=== PATIENT | female | born 1950 | race Caucasian/White ===

== ENCOUNTER 2024-03-22 19:19 | Inpatient (IN) | payer MEDICARE, SELFPAY ==
[2024-03-22 12:39] VITALS: BP 165/85
--- NOTE | 2024-03-22 12:45 | ED.GENMED ---
ED Provider Triage
<Jordana Parra SOFTWARE QUALITY ENGINEER - Last Filed: 03/28/24 09:23>
-
Patient seen by provider in Triage?: Seen in Triage
Attestation: A medical screening examination has been initiated by a qualified medical provider. Based on the assessment performed at this time, it has been determined that an emergent medical condition may exist and the patient has been informed
that further medical evaluation and possible additional diagnostic testing may be needed.
HPI: 74-year-old female presents with her daughter who is concerned for increased confusion, nonsensical talking. Pt lives alone an hour away, daughter picked her up to bring her to her home for the holiday and noted much worse confusion.
Pt talking nonsensically in triage, removing her bracelet then apologizing about it. No focal deficits.
GENERAL: Alert , in no apparent distress
EYE: No visual abnormalities.
ENT: No visible abnormalities.
LUNGS: No acute respiratory distress
NEUROLOGICAL: Alert and oriented
SKIN: Skin intact. No visible changes.
MUSCULOSKELETAL: Moving extremities normally
PSYCH: Normal and appropriate interaction.
This is a medical evaluation conducted in person to initiate diagnostic evaluation and provide initial therapeutics. Please see further documentation by the treating clinician.
History of Present Illness
<Jordana Parra SOFTWARE QUALITY ENGINEER - Last Filed: 03/28/24 09:23>
General
Chief Complaint: Change in Mental Status
Time Seen by Provider: 03/22/24 12:44
<Tabitha Giron MD - Last Filed: 03/22/24 16:00>
General
Source: patient and family (Patient's daughter and daughter's friend who are at the bedside)
Exam Limitations: none
Nursing documentation reviewed up to this point in time: agreed with
History of Present Illness
History of Present Illness:
The patient is a 74-year-old female with a past medical history of cognitive decline over the last year according to her daughter. However, her daughter reports that she has never had a formal diagnosis of dementia or any specific formal workup.
Her daughter reports that the patient is visiting an hour away from [place]. Her daughter reports over the last 48 hours, the patient seems more confused than ever. Her daughter reports that the patient is saying things that do not make sense,
having difficulty doing simple things, is not showering, and is having visual hallucinations. Her daughter reports that it is not safe that the patient stay with her anymore. She is also concerned because the patient lives alone so it is unsafe to
go back to [place].
Past History
<Tabitha Giron MD - Last Filed: 03/22/24 16:00>
Past History
ED Past Medical History: HTN and NIDDM
ED Past Surgical History: Other
Social History
Tobacco: Smoker
Alcohol: Other
Drug: None
Personal:
Living: alone
Employment: Retired
Family History
Family History: Other
Review of Systems
<Tabitha Giron MD - Last Filed: 03/22/24 16:00>
Review of Systems
Allergies reviewed?: Yes
Other source history: family
All Other Systems: Not applicable (Patient is a vague historian)
Phy Exam
<Tabitha Giron MD - Last Filed: 03/22/24 16:00>
Physical Exam
Physical Exam:
Physical Exam
General: no apparent distress, not acutely ill
Neck: supple. no meningeal signs. normal psoterior pharynx
Heart: s1/s2 regular rate and rhythm, no murmur. equal radial pulses.
Lungs: no acute respiratory distress. clear bilaterally
Abdomen: normal bowel sounds. not tender. no CVAT
Neuro: alert and oriented to self and place. no focal neurological deficits. Has difficulty following simple commands. Says things that do not make sense
Skin: no rash
Psychiatric: Calm and cooperative
Extremities: no edema. no calf tenderness. negative homans. good distal pulses
Course
<Jordana Parra NP - Last Filed: 03/28/24 09:23>
Orders/Labs/Results
Orders:
Orders
03/22/24 12:52
Complete Blood Count/With Diff Urgent
Comprehensive Metabolic Panel Urgent
Glycohemoglobin (HgbA1c) Urgent
03/22/24 14:53
Case Management Consult ONCE
Case Management Consult: Discharge Planning
Requested By:: PHYSICIAN
Comment: Patient has a history of an underlying cognitive disease which has been undiagnosed. Patient
is becoming more confused and forgetful. Patient lives alone at home so is unsafe
0.9% Sodium Chloride 1000 ml [Nss] 1,000 ml IV BOLUS
03/22/24 14:54
CT Head W/o Iv Contrast Urgent
Comment:
Reason For Exam: worsening confusion
03/22/24 Dinner
Regular
At Your Request: Limited, Flask Pusher Required
03/22/24 17:27
Urinalysis Reflex To Culture Urgent
Date Specimen was Collected: 03/22/24
Time Specimen was Collected: 12:49
Urine Microscopic Reflex Cult Urgent
03/22/24 18:48
Admit/Transfer Patient As Directed
Co-Sign Provider:
Level of Care: Inpatient admission
Assign to:: Medical/Surgical
Physician / Group: [facility]sky/Hospitalist
Diagnosis: Encephalopathy
Reason for Hospitalization: Acute Encephalopathy
Expected length of stay greater than two midnights?: Yes
ELOS- Estimated Length of Stay in days: 4
I certify the patient meets the requirements for IP care: Yes
PRN Pain Medication Management As Directed
May give lesser potent ordered pain med per pt: Yes
preference::
Protocol:: Medication orders for pain may be administered in a
manner that supports deferring to patient preference
when the pt is:
- Requesting an ordered lesser potent pain medication.
Least to most potent pain medications are defined
as: acetaminophen < NSAID < tramadol < opioids
(morphine, oxycodone, hydromorphone).
- Requesting a lesser dose of the same medication IF
ORDERED.
- Requesting a less intrusive route of administration
if both routes are prescribed by the provider (PO <
IV).
03/22/24 18:50
Code Status As Directed
Resuscitation Status: Do not resuscitate
Reached after discussion with pt or family/Healthcare POA: Yes
Decision communicated with: Latasha paez
03/22/24 18:51
DNR Bracelet Application ONCE
03/22/24 21:09
Bisacodyl [Dulcolax] 10 mg RECTAL [id number] PRN
Carvedilol [Coreg] 25 mg PO BID
Clonazepam [Klonopin] 0.5 mg PO DAILYPRN PRN
Docusate W/Senna [Senokot-S] 1 tablet PO BIDPRN PRN
Heparin 5,000 units SC Q12
Polyethylene Glycol Powder [Miralax] 17 grams PO DAILYPRN PRN
03/22/24 21:09
Consult Neurology [NEUROLOGY CONSULT] Routine
Consulting Provider: Kolby Kelley
Was physician already notified: Yes
Activity As Directed
Activity Level: Out of Bed-Early Mobility
With Assistance
Vital Signs As Directed
Frequency: Per unit guidelines
Weight As Directed
Frequency: Daily
DX Deep Vein Thrombosis Video Routine
03/22/24 22:00
Ezetimibe [Zetia] 10 mg PO HS
Rosuvastatin Calcium [Crestor] 20 mg PO HS
03/23/24 05:20
Basic Metabolic Panel IN AM
Thyroid profile [TSH Reflex To Free T4] IN AM
03/23/24 06:00
Levothyroxine [Synthroid] 88 mcg PO DAILY @ 0600
03/23/24 18:00
Pantoprazole [Protonix] 40 mg PO QPM
Abnormal Lab Results
03/22/24 03/22/24
12:52 17:27
Hgb 9.4 L g/dL
(12.0-16.0)
Hct 31.6 L %
(37.0-47.0)
MCV 61.4 L fL
(81.0-99.0)
MCH 18.3 L pg
(27.0-31.0)
MCHC 29.7 L g/dL
(33.0-37.0)
RDW 17.6 H %
(11.5-14.5)
BUN 46 H mg/dl
(7-17)
Creatinine 1.5 H mg/dL
(0.6-1.0)
Hemoglobin A1c 6.2 H %
(4.0-5.6)
Urine Ketones Trace A
(Negative)
Urine Bacteria (Reflex) Few A
(Negative)
Urine Albumin (Reflex) 1+ A
(Neg - Trace)
03/22/24 12:52
03/22/24 12:52
Vital Signs
Initial and Last Documented VS:
Initial Vital Signs
Temp Pulse Resp BP Pulse Ox
98.5 F 83 16 165/85 98
03/22/24 12:39 03/22/24 12:39 03/22/24 12:39 03/22/24 12:39 03/22/24 12:39
Last Documented Vital Signs
Temp Pulse Resp BP Pulse Ox
97.7 F 66 17 166/75 99
03/28/24 07:30 03/28/24 08:03 03/28/24 07:30 03/28/24 08:03 03/28/24 07:30
<Tabitha Giron MD - Last Filed: 03/22/24 16:00>
Orders/Labs/Results
Orders:
Orders
03/22/24 12:52
Complete Blood Count/With Diff Urgent
Comprehensive Metabolic Panel Urgent
Glycohemoglobin (HgbA1c) Urgent
03/22/24 14:53
Case Management Consult ONCE
Case Management Consult: Discharge Planning
Requested By:: PHYSICIAN
Comment: Patient has a history of an underlying cognitive disease which has been undiagnosed. Patient
is becoming more confused and forgetful. Patient lives alone at home so is unsafe
0.9% Sodium Chloride 1000 ml [Nss] 1,000 ml IV BOLUS
03/22/24 14:54
CT Head W/o Iv Contrast Urgent
Comment:
Reason For Exam: worsening confusion
03/22/24 Dinner
Regular
At Your Request: Limited, Flask Pusher Required
03/22/24 17:27
Urinalysis Reflex To Culture Urgent
Date Specimen was Collected: 03/22/24
Time Specimen was Collected: 12:49
Urine Microscopic Reflex Cult Urgent
03/22/24 18:48
Admit/Transfer Patient As Directed
Co-Sign Provider:
Level of Care: Inpatient admission
Assign to:: Medical/Surgical
Physician / Group: Mirsky/Hospitalist
Diagnosis: Encephalopathy
Reason for Hospitalization: Acute Encephalopathy
Expected length of stay greater than two midnights?: Yes
ELOS- Estimated Length of Stay in days: 4
I certify the patient meets the requirements for IP care: Yes
PRN Pain Medication Management As Directed
May give lesser potent ordered pain med per pt: Yes
preference::
Protocol:: Medication orders for pain may be administered in a
manner that supports deferring to patient preference
when the pt is:
- Requesting an ordered lesser potent pain medication.
Least to most potent pain medications are defined
as: acetaminophen < NSAID < tramadol < opioids
(morphine, oxycodone, hydromorphone).
- Requesting a lesser dose of the same medication IF
ORDERED.
- Requesting a less intrusive route of administration
if both routes are prescribed by the provider (PO <
IV).
03/22/24 18:50
Code Status As Directed
Resuscitation Status: Do not resuscitate
Reached after discussion with pt or family/Healthcare POA: Yes
Decision communicated with: Latasha paez
03/22/24 18:51
DNR Bracelet Application ONCE
03/22/24 21:09
Bisacodyl [Dulcolax] 10 mg RECTAL [id number] PRN
Carvedilol [Coreg] 25 mg PO BID
Clonazepam [Klonopin] 0.5 mg PO DAILYPRN PRN
Docusate W/Senna [Senokot-S] 1 tablet PO BIDPRN PRN
Heparin 5,000 units SC Q12
Polyethylene Glycol Powder [Miralax] 17 grams PO DAILYPRN PRN
03/22/24 21:09
Consult Neurology [NEUROLOGY CONSULT] Routine
Consulting Provider: Kolby Kelley
Was physician already notified: Yes
Activity As Directed
Activity Level: Out of Bed-Early Mobility
With Assistance
Vital Signs As Directed
Frequency: Per unit guidelines
Weight As Directed
Frequency: Daily
DX Deep Vein Thrombosis Video Routine
03/22/24 22:00
Ezetimibe [Zetia] 10 mg PO HS
Rosuvastatin Calcium [Crestor] 20 mg PO HS
03/23/24 05:20
Basic Metabolic Panel IN AM
Thyroid profile [TSH Reflex To Free T4] IN AM
03/23/24 06:00
Levothyroxine [Synthroid] 88 mcg PO DAILY @ 0600
03/23/24 18:00
Pantoprazole [Protonix] 40 mg PO QPM
Abnormal Lab Results
03/22/24 03/22/24
12:52 17:27
Hgb 9.4 L g/dL
(12.0-16.0)
Hct 31.6 L %
(37.0-47.0)
MCV 61.4 L fL
(81.0-99.0)
MCH 18.3 L pg
(27.0-31.0)
MCHC 29.7 L g/dL
(33.0-37.0)
RDW 17.6 H %
(11.5-14.5)
BUN 46 H mg/dl
(7-17)
Creatinine 1.5 H mg/dL
(0.6-1.0)
Hemoglobin A1c 6.2 H %
(4.0-5.6)
Urine Ketones Trace A
(Negative)
Urine Bacteria (Reflex) Few A
(Negative)
Urine Albumin (Reflex) 1+ A
(Neg - Trace)
03/22/24 12:52
03/22/24 12:52
Vital Signs
Initial and Last Documented VS:
Initial Vital Signs
Temp Pulse Resp BP Pulse Ox
98.5 F 83 16 165/85 98
03/22/24 12:39 03/22/24 12:39 03/22/24 12:39 03/22/24 12:39 03/22/24 12:39
Last Documented Vital Signs
Temp Pulse Resp BP Pulse Ox
97.7 F 66 17 166/75 99
03/28/24 07:30 03/28/24 08:03 03/28/24 07:30 03/28/24 08:03 03/28/24 07:30
<Tabitha Giron MD - Last Filed: 03/22/24 16:00>
MDM/Problems Addressed
Differential Diagnosis Includes:
Acute flare of chronic dementia, UTI, intracranial hemorrhage
MDM/Problems Addressed:
Patient presents with acute on chronic confusion
Chronic conditions affecting care:
History of cognitive disorder
Acute Exacerbation and/or Progression of Chronic Illness:
Patient may have acute exacerbation of a cognitive disorder
<Tabitha Giron MD - Last Filed: 03/22/24 16:00>
*Pulse Oximetry
Patient hypoxic: no
*EKG
Interpreted by ED Provider?: NA
*Floor Layer Interpretation
Rate: normal
Interpretation: normal
Rhythm: sinus
*Critical Care Note
Total Time (30-74mins, 75-104mins- exclusive of procedures): Not Applicable
Data Reviewed
Source: patient and family
<Tabitha Giron MD - Last Filed: 03/22/24 16:00>
Patient Management
Social determinants of health affecting care: Living situation
Discussion with other providers: Hospitalist and Other (Case managementSharron came to assess patient.)
ED Attending Note
<Jordana Parra NP - Last Filed: 03/28/24 09:23>
-
Portions of this chart may have been created with voice recognition software.� Occasional wrong word or��sound alike� substitutions may have occurred due to the inherent limitations of voice recognition software.
Discharge Plan
Departure
Patient Disposition: Admit
Date of Disposition: 03/22/24
Time of Disposition: 16:00
Presentation/result/management discussed w/ accepting MD/DO: Hospitalist
Patient with high blood pressure during this ER visit?: Yes
Condition: Good
Covid-19: Not Applicable
Discharge Problem:
Acute on chronic alteration in mental status
Interventions
Interventions:
*Risk Screen - Suicide Last Done: 03/22/24 15:35
*General Assessment Last Done: 03/22/24 15:35
*Neglect/Abuse Screening Last Done: 03/22/24 15:35
ED- Fall Risk Assessment Last Done: 03/22/24 21:21
*Nursing Disposition Last Done: 03/22/24 21:21
ED- Neurological Assessment Last Done: 03/22/24 15:35
ED Swallowing Screen Last Done: 03/22/24 15:36
Discharge Date and Time
Discharge Date/Time: 03/22/24 21:21
[2024-03-22 13:10] LABS: Glucose - Point of Care 81 mg/dl (70-99)
--- NOTE | 2024-03-22 13:15 | EDRN ---
pt. family member came up to front window cashier and reported pt felt a little shaking like her blood sugar was low. unable to check blood sugar due to supplies being at home and asking for juice. RN brought pt back to check blood sugar. blood sugar 81. OJ
given even though blood sugar within normal ranges because pt family asked. Brought pt back out family members.
[2024-03-22 13:21] LABS: % Basophils 0.8 % (0-2); % Eosinophils 1.7 % (0-6); % Immature Granulocytes 0.3 % (0-0.5); % Lymphocytes 33.2 % (20.5-51.1); % Monocytes 8.3 % (1.7-9.3); % Neutrophils 55.7 % (42.2-75.2); Absolute Basophils 0.1 10^3/uL (0-0.2); Absolute Eosinophils 0.1 10^3/uL (0-0.7); Absolute Lymphocytes 2.2 10^3/uL (1.2-3.4); Absolute Monocytes 0.6 10^3/uL (0.1-0.6); Absolute Neutrophils 3.7 10^3/uL (1.4-6.5); Hematocrit 31.6 % (37.0-47.0); Hemoglobin 9.4 g/dL (12.0-16.0); Mean Corp Hgb Conc. 29.7 g/dL (33.0-37.0); Mean Corpuscular Hgb 18.3 pg (27.0-31.0); Mean Corpuscular Volume 61.4 fL (81.0-99.0); Nucleated Red Blood Cells % 0 %; Platelet Count 202 10^3/uL (130-400); Red Blood Cell Count 5.15 10^6/uL (4.20-5.40); Red Cell Dist. Width 17.6 % (11.5-14.5); White Blood Cell Count 6.7 10^3/uL (4.8-10.8)
[2024-03-22 13:24] LABS: ALT (SGPT) 15 U/L (0-35); AST (SGOT) 34 U/L (14-36); Alkaline Phosphatase 65 U/L (38-126); Blood Urea Nitrogen 46 mg/dl (7-17); Calcium 9.2 mg/dl (8.4-10.2); Carbon Dioxide 25 mmol/L (22-30); Chloride 104 mmol/L (98-107); Glucose 86 mg/dl (70-99); Potassium 4.8 mmol/L (3.5-5.1); Sodium 142 mmol/L (135-145); Total Bilirubin 0.3 mg/dl (0.2-1.3)
[2024-03-22] MEDS: NSS 1000 IV (15:10)
--- NOTE | 2024-03-22 16:04 | CM ---
Addendum entered by Sharron Sevilla RN 03/22/24 16:55:
CM provided patient's daughter with Advanced Directive Information.
Original Note:
CM was consulted regarding discharge planning options. CM met with patient and family in room. Family reports that patient recently moved back to [place] about two years ago. Family stated that they had a difficult time seeing patient regularly
due to distance. Patient was picked up by family to spend the holiday's with family. Family noted that patient seems acutely confused and they were unable to manage her behavior including wandering and confusion.
Family understands that patient living alone may not continue to be an options. CM encouraged family to discuss alternative living arrangements. CM provided family with written resources on [employer], private pay care givers, and [facility] on
Aging and [facility] on aging. Family believes they will be transitioning patient to the [facility]. CM advised that patient may not need placement, and encouraged family to make safety arrangements for patient on discharge.
CM updated ED physician and bedside RN>
[2024-03-22 16:51] VITALS: BP 171/60
[2024-03-22 17:42] LABS: Urine Albumin 1+ (Neg - Trace); Urine Bilirubin Negative (Negative); Urine Character Clear (Clear); Urine Color Yellow; Urine Glucose Negative (Negative); Urine Ketone Trace (Negative); Urine Leukocyte Negative (Negative); Urine Nitrite Negative (Negative); Urine Occult Blood Negative (Negative); Urine Specific Gravity 1.015 (<1.030); Urine Urobilinogen Negative (Neg - 1+)
[2024-03-22 17:49] LABS: Urine Squamous Cell 0-2 /LPF (Few)
[2024-03-22 17:50] LABS: Urine Bacteria Few (Negative); Urine Red Blood Cell 0-2 /HPF (0-2); Urine White Cell 0-2 /HPF (0-5)
--- NOTE | 2024-03-22 18:55 | W.PN.HOSP.TC ---
Today's Communication/Plan
-
check labs
neuro consult
Assessment / Plan
Assessment / Plan
Progressive decrease cognitive fxn past year, became suddenly more severe past 48 hrs
unclear if pt has been taking her medications. Concern for NPH. CT scan: There is no evidence of intracranial mass lesion or mass effect with no midline shift.
There is no evidence for acute intracranial hemorrhage.
Mild to moderate diffuse atrophy. Moderate ventricular dilation appears slightly greater in the degree of atrophy. The callosal angle appears normal, the finding which is considered evidence against normal pressure hydrocephalus but does not exclude
normal pressure hydrocephalus. Please correlate clinically.
Hypothyroidism
will check levels
Hx of essential HTN
probably not taking medication
P:neuro consult
will hold most of medications and resume cautiously
Pt is a DNR
See dictated note
Anticipated Discharge: > 48 hours
Subjective/Interval History
-
Date of Service: March 22, 2024
Gradually decreasing mental status over past 1 year, becoming markedly more severe past 48 hrs
Objective Data
-
Labs:
Laboratory Results
03/22/24
12:52
WBC 6.7
Hgb 9.4 L
Hct 31.6 L
Plt Count 202
Sodium 142
Potassium 4.8
Chloride 104
Carbon Dioxide 25
BUN 46 H
Creatinine 1.5 H
Glucose 86
Calcium 9.2
Total Bilirubin 0.3
AST 34
ALT 15
Alkaline Phosphatase 65
Vital Signs:
Vital Signs
Temp Pulse Resp BP Pulse Ox
98.5 F 77 18 171/60 87
03/22/24 12:39 03/22/24 16:51 03/22/24 16:51 03/22/24 16:51 03/22/24 16:51
Review of Systems
-
History Source: Family (dgt, Latasha)
Constitutional: Denies Fever
EENT: Reports No Symptoms Reported
Respiratory: Reports No Symptoms
Cardiac: Reports No Symptoms
Abdomen/GI: Reports No Symptoms
Physical Exam
-
General: Well Developed, Well Nourished and No Apparent Distress
HEENT: Normocephalic, Atraumatic and Moist Mucous Membranes
Respiratory: Clear to Auscultation; Negative Wheezes, Rales or Rhonchi
Cardiac: Regular Rhythm and S1/S2
GI: Soft, Nontender and Nondistended
Musculoskeletal: No Clubbing, No Cyanosis and No Edema
Psych: Calm
[2024-03-22 21:15] VITALS: BP 155/71; BMI 23.3
[2024-03-22] MEDS: ZETIA 10 MG PO (22:27)
[2024-03-22] MEDS: HEPARIN SC ×2 (22:27→22:36)
[2024-03-22] MEDS: CRESTOR 20 MG PO (22:27)
[2024-03-22] MEDS: COREG 25 MG PO (22:27)
[2024-03-22] MEDS: KLONOPIN 0.5 MG PO (22:28)
[2024-03-23] MEDS: SYNTHROID 88 MCG PO (05:11)
[2024-03-23 06:00] VITALS: BMI 23.1
[2024-03-23 06:20] LABS: Blood Urea Nitrogen 39 mg/dl (7-17); Carbon Dioxide 23 mmol/L (22-30); Chloride 106 mmol/L (98-107); Estimated Creatinine Clearance 30 ml/min; Glucose 84 mg/dl (70-99); Potassium 4.5 mmol/L (3.5-5.1); Sodium 143 mmol/L (135-145); eGFR 43.69
[2024-03-23 06:49] LABS: TSH Reflex To Free T4 0.16 uIU/ml (0.47-4.68)
--- NOTE | 2024-03-23 07:32 | CON.NEURO ---
Neuro Assessment/Plan
Assessment
Abrupt onset cognitive decline on chronic cognitive decline
Most likely multifactorial including mild metabolic issues which involve hypothyroidism, inadequate iron replacement, small vessel ischemic disease
Plan
Check blood work for potential metabolic causes including vitamin B12 deficiency and replace B12 if found to be deficient
Restart iron replacement
No evidence at this time and the patient is clearly experiencing normal pressure hydrocephalus other than the patient's cognitive decline and mildly enlarged ventricles
Consideration for sleep testing as outpatient due to relatively age-ng-haukadh hypothyroidism
Based on the significant nature of the patient's cognitive issues, it is not clear that she would benefit from medications for stabilization other than memantine
We will follow as needed.
Consultation
Order
Date of Consultation: 03/23/24
Requesting Provider: Hospitalist
Reason for Consult: Dementia
Subjective/Objective
Subjective Data
Date of Service: March 23, 2024
'I've come in for a procedure.'
Right-handed
By medical records, the patient has a history of cognitive decline over greater than 1 year was described by family members at the time of admission as experiencing a sudden worsening of cognition. Because of CT of head changes, this consult was
placed. There are no known modifying factors. It is not clear as to what the patient's usual level of cognitive function may be reflected as as the patient herself is unable to provide her own medical history.
Objective Data
Vital Signs
Temp Pulse Resp BP Pulse Ox
37.2 C 77 16 155/71 99
03/22/24 21:15 03/22/24 22:27 03/22/24 21:15 03/22/24 22:27 03/22/24 21:15
Lab Results
03/22/24 12:52
03/23/24 05:20
Sodium 143 mmol/L (135-145) 03/23/24 05:20
Potassium 4.5 mmol/L (3.5-5.1) 03/23/24 05:20
BUN 39 mg/dl (7-17) H 03/23/24 05:20
Glucose 84 mg/dl (70-99) 03/23/24 05:20
Calcium 9.0 mg/dl (8.4-10.2) 03/23/24 05:20
Patient Allergies
Penicillins Allergy (Verified 03/22/24 12:49)
Unknown
Review of Systems
-
Unable to obtain full review of systems at this time due to: Dementia
History Source: Patient
All other systems: Reviewed and negative
Physical Exam
-
General: No Apparent Distress and Appears Stated Age
Eyes: OU Absent Papilledema, Round OU, [place] Conjunctivae and No Ptosis
HEENT: Anicteric and Moist Mucous Membranes
Neck: Full Range of Motion
Respiratory: No Dyspnea
Cardiac: No JVD
GI: Non-distended
Skin: Unremarkable
Extremities: No Clubbing, No Cyanosis and No Edema
Psych: Intact Judgement/Insight
Extended Neurological Exam
Mood & Affect: Mood Unremarkable and Affect Unremarkable
Attention Span & Concentration: Awake, Alert, Interactive and No Difficulty with 2 Step Request
Memory: Reduced (For location, month, year) and Unable to Recall Personal History
Tremor: Hand Tremor Absent and Head Tremor Absent
Involuntary Movement: None
Speech: Quality Unremarkable and Quantity Unremarkable
Cranial Nerve II: Left Eye: Pupillary Reactivity Unremarkable, Pupillary Size Unremarkable and Visual Sears Intact
Cranial Nerve II: Right Eye: Pupillary Reactivity Unremarkable, Pupillary Size Unremarkable and Visual Sears Intact
Cranial Nerves III, IV, : Extraocular Movement: Extraocular Movement Full in all Directions
Cranial Nerve VII: Facial Symmetry: Normal Facial Symmetry
Cranial Nerve VIII: Hearing: Unremarkable Hearing to Normal Conversational Volume
Cranial Nerves IX, X: Palate Movement: Palate Elevation Symmetric
Cranial Nerve XI: Shoulder Shrug: Unremarkable
Cranial Nerve XII: Tongue Protusion: Midline
Muscle Strength, Overall: Full Throughout
Muscle Bulk & Tone: Bulk Unremarkable and Tone Unremarkable
Pronator Drift: No Drift in Upper Extremities
Deep Tendon Reflexes: Unremarkable Throughout
Touch Sensation: Unremarkable
Coordination: [id number] Testing Unremarkable
Babinski Sign: Absent Bilaterally
Data Reviewed
-
CT Head: Report Reviewed and Image Reviewed
Labs: Ordered and Report Reviewed
Reviewed with: Physician and Patient
Old Records: Summarized
Medications
-
Active Medications
Generic Name Dose Route Start Last Admin
Trade Name Freq PRN Reason Stop Dose Admin
Bisacodyl 10 mg 03/22/24 21:09
Bisacodyl 10 Mg Rectal Suppository RECTAL 04/19/24 21:08
[id number] PRN
constipation
Carvedilol 25 mg 03/22/24 21:09 03/22/24 22:27
Carvedilol 25 Mg Tablet PO 04/19/24 21:08 25 mg
BID STEPHENIE Administration
Clonazepam 0.5 mg 03/22/24 21:09 03/22/24 22:28
Clonazepam 0.5 Mg Tablet PO 04/19/24 21:08 0.5 mg
DAILYPRN PRN Administration
anxiety
Ezetimibe 10 mg 03/22/24 22:00 03/22/24 22:27
Ezetimibe (Zetia) 10 Mg Tablet PO 04/19/24 21:59 10 mg
HS STEPHENIE Administration
Heparin Sodium 5,000 units 03/22/24 21:09 03/22/24 22:36
Heparin 5,000 Units/Ml 1 Ml Vial SC 04/19/24 21:08 Not Given
Q12 STEPHENIE
Levothyroxine Sodium 88 mcg 03/23/24 06:00 03/23/24 05:11
Levothyroxine 88 Mcg Tablet PO 04/20/24 05:59 88 mcg
DAILY @ 0600 STEPHENIE Administration
Pantoprazole Sodium 40 mg 03/23/24 18:00
Pantoprazole 40 Mg Delayed Release Tablet PO 04/20/24 17:59
QPM STEPHENIE
Polyethylene Glycol 17 grams 03/22/24 21:09
Polyethylene Glycol Powder 17 Grams Packet PO 04/19/24 21:08
DAILYPRN PRN
constipation
Rosuvastatin Calcium 20 mg 03/22/24 22:00 03/22/24 22:27
Rosuvastatin (Crestor) 20 Mg Tablet PO 04/19/24 21:59 20 mg
HS STEPHENIE Administration
Senna/Docusate Sodium 1 tablet 03/22/24 21:09
Docusate W/Senna (Jess-Colace) Tablet PO 04/19/24 21:08
BIDPRN PRN
constipation
Sodium Chloride 0 flush 03/22/24 22:00
Sodium Chloride 0.9% (Flush) Syringe IV 04/19/24 21:59
PER PROTOCOL STEPHENIE
Home Medications
�Medication �Instructions �Recorded
carvedilol 25 mg tablet 25 mg PO BID Heart Failure 03/22/24
clonazepam 0.5 mg tablet 0.5 mg PO DAILYPRN PRN anxiety 03/22/24
dexlansoprazole 60 mg 60 mg PO DAILY Gastrointestinal 03/22/24
capsule,biphase delayed release Issue
esomeprazole magnesium 20 mg 20 mg PO QPM Gastrointestinal Issue 03/22/24
capsule,delayed release (Nexium
24HR)
ezetimibe 10 mg tablet 10 mg PO HS High Cholesterol 03/22/24
famotidine 20 mg tablet (Pepcid) 20 mg PO DAILY Gastrointestinal 03/22/24
Issue
hydrochlorothiazide 12.5 mg capsule 12.5 mg PO NOON Fluid 03/22/24
Retention/Swelling
levothyroxine 88 mcg tablet 88 mcg PO DAILY Thyroid 03/22/24
metformin 500 mg tablet 500 mg PO QPM Diabetes 03/22/24
morphine 15 mg tablet,extended 15 mg PO Q12H Pain 03/22/24
release
pregabalin 75 mg capsule 75 mg PO TID Neurological Condition 03/22/24
rosuvastatin 20 mg tablet 20 mg PO HS High Cholesterol 03/22/24
telmisartan 80 mg tablet 80 mg PO NOON Blood Pressure 03/22/24
Past History
Past History
ED Past Medical History: GERD, HTN, NIDDM, Hypothyroidism and Other (Cognitive decline, emphysema, low iron, Meyer's esophagus, chronic back pain)
ED Past Surgical History: Orthopedic (Back surgery, right ankle repair)
Social History
Tobacco: Smoker
Alcohol: Other
Drug: None
Personal:
Living: alone
Employment: Retired
Family History
Family History: Other (Reviewed and noncontributory)
[2024-03-23 07:52] VITALS: BP 127/54
[2024-03-23] MEDS: COREG 25 MG PO ×2 (08:56→20:07)
[2024-03-23 08:57] LABS: Erythrocyte Sed Rate 52 mm/hour (0-20)
[2024-03-23] MEDS: HEPARIN 5000 UNITS SC ×2 (08:58→20:07)
[2024-03-23 09:15] LABS: Ferritin 28.9 ng/ml (11.1-264.0)
[2024-03-23 09:46] LABS: Folate 12.8 ng/ml (2.76-20); Vitamin B12 366 pg/ml (239-931)
[2024-03-23] MEDS: FERRLECIT 110 MG IV (15:18)
[2024-03-23] MEDS: VITAMIN B-12 1000 MCG PO (15:22)
[2024-03-23 15:46] VITALS: BP 152/77
--- NOTE | 2024-03-23 16:11 | W.PN.HOSP.TC ---
Today's Communication/Plan
-
follow BP off anti HTN Rx
check a1c
Assessment / Plan
Assessment / Plan
Progressive decrease cognitive fxn past year, became suddenly more severe past 48 hrs
unclear if pt has been taking her medications. Concern for NPH. CT scan: There is no evidence of intracranial mass lesion or mass effect with no midline shift.
There is no evidence for acute intracranial hemorrhage.
Mild to moderate diffuse atrophy. Moderate ventricular dilation appears slightly greater in the degree of atrophy. The callosal angle appears normal, the finding which is considered evidence against normal pressure hydrocephalus but does not exclude
normal pressure hydrocephalus. Please correlate clinically.
Hypothyroidism
TSH 0.16/free T4 2.30
unclear if pt was taking correct dose prior to admission. Will continue current dose and recheck level in future
Hx of essential HTN
probably not taking medication. BP 127/54-152/77. Will hold off resuming BP medication and follow BP
Thalassemia Minor
will follow
NIDDM by hx
will stop Metformin and check a1c
Prerenal azotemia
BUN/Creat 46/1.5-->39/1.3
improvement in dehydration (probably with stopping HCTZ) may be related to her slightly improved mentation
P:neuro consult appreciated
will hold most of medications and resume cautiously
Pt is a DNR
reviewed with Latasha paez 03/23
Reviewed with RAISA
Anticipated Discharge: 24 - 48 hours
Subjective/Interval History
-
Date of Service: March 23, 2024
Slightly more attentive today
Objective Data
-
Labs:
Laboratory Results
03/23/24
05:20
Sodium 143
Potassium 4.5
Chloride 106
Carbon Dioxide 23
BUN 39 H
Creatinine 1.3 H
Glucose 84
Calcium 9.0
Vital Signs:
Vital Signs
Temp Pulse Resp BP Pulse Ox
97.8 F 73 17 152/77 95
03/23/24 15:46 03/23/24 15:46 03/23/24 15:46 03/23/24 15:46 03/23/24 15:46
I&O
03/22/24 03/23/24 03/24/24
06:59 06:59 06:59
Intake Total
Balance
Review of Systems
-
History Source: Family (jeannine, Latasha)
Constitutional: Denies Fever
EENT: Reports No Symptoms Reported
Respiratory: Reports No Symptoms
Cardiac: Reports No Symptoms
Abdomen/GI: Reports No Symptoms
Physical Exam
-
General: Well Developed, Well Nourished and No Apparent Distress
HEENT: Normocephalic, Atraumatic and Moist Mucous Membranes
Respiratory: Clear to Auscultation; Negative Wheezes, Rales or Rhonchi
Cardiac: Regular Rhythm and S1/S2
GI: Soft, Nontender and Nondistended
Musculoskeletal: No Clubbing, No Cyanosis and No Edema
Psych: Calm
[2024-03-23 16:17] VITALS: BP 171/89; PULSE 78; O2SAT 98
--- NOTE | 2024-03-23 16:55 | CM ---
PT done indicated VN . Will need OT.
Pt lives alone .
PLAN Ongoing
[2024-03-23] MEDS: PROTONIX 40 MG PO (17:18)
[2024-03-23] MEDS: KLONOPIN 0.5 MG PO (20:06)
[2024-03-23 20:20] VITALS: BP 165/77
[2024-03-23] MEDS: CRESTOR PO (21:19)
[2024-03-23] MEDS: FEOSOL PO (21:20)
[2024-03-23] MEDS: ZETIA PO (21:20)
[2024-03-23] MEDS: ZETIA 10 MG PO (21:31)
[2024-03-23] MEDS: CRESTOR 20 MG PO (21:31)
[2024-03-23] MEDS: FEOSOL 325 MG PO (21:31)
[2024-03-23 23:20] VITALS: BP 141/73
[2024-03-24 05:44] VITALS: BMI 22.7
[2024-03-24] MEDS: SYNTHROID 88 MCG PO (06:18)
--- NOTE | 2024-03-24 06:46 | DOWNTIME ---
There was a [email or web address] Downtime on 03/24/2024 from 0100 to 03/24/2024 at 0350. Downtime documentation of patient's care, including medication administrations, has been reconciled in the electronic record per guidelines. Refer to the
patient's paper chart under the miscellaneous tab to see printed paper medication records and downtime forms.
[2024-03-24 07:00] VITALS: BP 180/76
[2024-03-24] MEDS: COREG 25 MG PO ×2 (08:55→20:56)
[2024-03-24] MEDS: HEPARIN 5000 UNITS SC ×2 (08:55→20:54)
[2024-03-24] MEDS: VITAMIN B-12 1000 MCG PO (09:01)
[2024-03-24 10:02] LABS: Glycohemoglobin (HgbA1c) 6.2 % (4.0-5.6)
--- NOTE | 2024-03-24 12:26 | W.PN.HOSP.TC ---
Today's Communication/Plan
-
check for Norovirus
resume BP Rx, Diovan
resume Metformin
Assessment / Plan
Assessment / Plan
Progressive decrease cognitive fxn past year, became suddenly more severe past 48 hrs
unclear if pt has been taking her medications. Concern for NPH. CT scan: There is no evidence of intracranial mass lesion or mass effect with no midline shift.
There is no evidence for acute intracranial hemorrhage.
Mild to moderate diffuse atrophy. Moderate ventricular dilation appears slightly greater in the degree of atrophy. The callosal angle appears normal, the finding which is considered evidence against normal pressure hydrocephalus but does not exclude
normal pressure hydrocephalus. Please correlate clinically.
Hypothyroidism
TSH 0.16/free T4 2.30
unclear if pt was taking correct dose prior to admission. Will continue current dose and recheck level in future
Hx of essential HTN
probably not taking medication. BP 127/54-152/77. Will start Diovan 80 mg
diarrhea
possibly norovirus, will check
Thalassemia Minor
will follow
NIDDM by hx
a1c 6.2%. Will resume Metformin
Prerenal azotemia
BUN/Creat 46/1.5-->39/1.3
improvement in dehydration (probably with stopping HCTZ) may be related to her slightly improved mentation
P:neuro consult appreciated
will hold most of medications and resume cautiously
Pt is a DNR
reviewed with Latasha paez 03/24, requested she contact CM regarding dc planning
Reviewed with CM
Anticipated Discharge: 24 - 48 hours
Subjective/Interval History
-
Date of Service: March 24, 2024
Having diarrhea today
Objective Data
-
Vital Signs:
Vital Signs
Temp Pulse Resp BP Pulse Ox
97.8 F 69 17 180/76 98
03/24/24 07:00 03/24/24 08:55 03/24/24 07:00 03/24/24 08:55 03/24/24 08:20
I&O
03/23/24 03/24/24 03/25/24
06:59 06:59 06:59
Intake Total 60 / 60 180 / 180
Balance 60 / 60 180 / 180
Review of Systems
-
History Source: Family (dgt, Latasha)
Constitutional: Denies Fever
EENT: Reports No Symptoms Reported
Respiratory: Reports No Symptoms
Cardiac: Reports No Symptoms
Abdomen/GI: Reports No Symptoms
Physical Exam
-
General: Well Developed, Well Nourished and No Apparent Distress
HEENT: Normocephalic, Atraumatic and Moist Mucous Membranes
Respiratory: Clear to Auscultation; Negative Wheezes, Rales or Rhonchi
Cardiac: Regular Rhythm and S1/S2
GI: Soft, Nontender and Nondistended
Musculoskeletal: No Clubbing, No Cyanosis and No Edema
Psych: Calm
[2024-03-24] MEDS: DIOVAN 80 MG PO (14:00)
[2024-03-24 15:00] VITALS: BP 176/83
--- NOTE | 2024-03-24 16:46 | CM ---
CM reviewed chart and lengthy dc planning with son/Zay
Zay is POA [phone]
He is coordinating all dc planning
He is requesting SNF initially be set up
He is starting to vet and tour memory care facilities
Private duty info also provided along with [facility]
Hopeful plan is [facility] rehab while making LTC arrangements at [facility]
If needed, plan can be to return to his home with VN and private duty
He will start to call resources
He is requesting documentation that pt does not have decisional capacity
PASRR completed and rehab referrals sent via [facility]
Pt has funds intact for SNF care
Discharge Disposition- SNF for possible LTC
[2024-03-24] MEDS: GLUCOPHAGE 500 MG PO (17:25)
[2024-03-24] MEDS: PROTONIX 40 MG PO (17:26)
[2024-03-24 17:30] LABS: Glucose - Point of Care 86 mg/dl (70-99)
[2024-03-24] MEDS: KLONOPIN 0.25 MG PO ×2 (18:49→23:48)
--- NOTE | 2024-03-24 19:30 | PTCARENOTE ---
pt becoming increasingly agitated. making attempts to get out of bed and unable to be redirected by medsitter or staff. made aware. order for PRN Klonapin for anxiety obtained. continuing to monitor pt for safety
[2024-03-24 20:15] VITALS: BP 124/53
[2024-03-24 20:47] VITALS: BP 124/53
[2024-03-24] MEDS: CRESTOR 20 MG PO (21:16)
[2024-03-24] MEDS: FEOSOL 325 MG PO (21:16)
[2024-03-24] MEDS: ZETIA 10 MG PO (21:16)
[2024-03-24] MEDS: TYLENOL 650 MG PO (22:29)
[2024-03-24 23:56] VITALS: BP 165/80
[2024-03-25] MEDS: TYLENOL 650 MG PO (03:27)
[2024-03-25] MEDS: SYNTHROID 88 MCG PO (05:16)
[2024-03-25 06:00] VITALS: BMI 22.3
[2024-03-25 07:15] VITALS: BP 161/77
[2024-03-25] MEDS: KLONOPIN 0.25 MG PO ×3 (07:35→17:05)
[2024-03-25] MEDS: DIOVAN 80 MG PO (07:36)
[2024-03-25] MEDS: HEPARIN 5000 UNITS SC ×2 (07:36→19:57)
[2024-03-25] MEDS: VITAMIN B-12 1000 MCG PO (07:36)
[2024-03-25] MEDS: COREG 25 MG PO ×2 (07:36→19:56)
[2024-03-25] MEDS: GLUCOPHAGE 500 MG PO ×2 (07:36→17:05)
--- NOTE | 2024-03-25 15:03 | W.PN.HOSP.TC ---
Today's Communication/Plan
-
Will need termite helper facility
Psych consult
Assessment / Plan
Assessment / Plan
Progressive decrease cognitive fxn past year, became suddenly more severe past 48 hrs
unclear if pt has been taking her medications. Concern for NPH. CT scan: There is no evidence of intracranial mass lesion or mass effect with no midline shift.
There is no evidence for acute intracranial hemorrhage.
Mild to moderate diffuse atrophy. Moderate ventricular dilation appears slightly greater in the degree of atrophy. The callosal angle appears normal, the finding which is considered evidence against normal pressure hydrocephalus but does not exclude
normal pressure hydrocephalus. Please correlate clinically.
Hypothyroidism
TSH 0.16/free T4 2.30
unclear if pt was taking correct dose prior to admission. Will continue current dose and recheck level in future
Hx of essential HTN
probably not taking medication. BP 127/54-152/77. Will start Diovan 80 mg, BP 161/77
diarrhea
possibly norovirus, will check
Thalassemia Minor
will follow
NIDDM by hx
a1c 6.2%. Will resume Metformin
diarrhea
Norovirus test was negative. Will follow for now. ?Metformin related, consider stopping if diarrhea persists
Prerenal azotemia
BUN/Creat 46/1.5-->39/1.3
improvement in dehydration (probably with stopping HCTZ) may be related to her slightly improved mentation
P:neuro consult appreciated
will hold most of medications and resume cautiously
will consult Psych for recommendation on anti-Psychotic Rx
Pt is a DNR
reviewed with Latasha paez 03/25, requested she contact CM regarding dc planning
Reviewed with CM
Anticipated Discharge: 24 - 48 hours
Subjective/Interval History
-
Date of Service: March 25, 2024
Currently sleeping, but nursing reports can get agitated. Still with diarrhea
Objective Data
-
Vital Signs:
Vital Signs
Temp Pulse Resp BP Pulse Ox
97.7 F 70 18 161/77 95
03/25/24 07:15 03/25/24 07:15 03/25/24 07:15 03/25/24 07:15 03/25/24 07:15
I&O
03/24/24 03/25/24 03/26/24
06:59 06:59 06:59
Intake Total 180 / 180 240 / 240
Balance 180 / 180 240 / 240
Review of Systems
-
History Source: Family (elsit, Latasha)
Constitutional: Denies Fever
EENT: Reports No Symptoms Reported
Respiratory: Reports No Symptoms
Cardiac: Reports No Symptoms
Abdomen/GI: Reports No Symptoms
Physical Exam
-
General: Well Developed, Well Nourished and No Apparent Distress
HEENT: Normocephalic, Atraumatic and Moist Mucous Membranes
Respiratory: Clear to Auscultation; Negative Wheezes, Rales or Rhonchi
Cardiac: Regular Rhythm and S1/S2
GI: Soft, Nontender and Nondistended
Musculoskeletal: No Clubbing, No Cyanosis and No Edema
Psych: Calm
[2024-03-25 15:10] VITALS: BP 146/80
[2024-03-25] MEDS: PROTONIX 40 MG PO (17:05)
[2024-03-25] MEDS: CRESTOR 20 MG PO (21:29)
[2024-03-25] MEDS: ZETIA 10 MG PO (21:29)
[2024-03-25] MEDS: FEOSOL 325 MG PO (21:29)
[2024-03-25 23:17] VITALS: BP 174/79
[2024-03-26] MEDS: SYNTHROID PO ×2 (05:06)
[2024-03-26] MEDS: KLONOPIN PO ×2 (05:06→22:20)
--- NOTE | 2024-03-26 07:20 | PTCARENOTE ---
Patient received in bed continues wit 1:1, confuse, repetitive in conversations, repeated attempts to self transfer. Patient easily redirected with encouragement. Patient sleeps approximately 15 to 20 minutes at a time, SWEATER DESIGNER made aware. Melatonin
ordered, pt refuse to take melatonin and prn klonopin. Toileting offered, assessed for pain which patient denies. Patient repeatedly saying she wants to leave or calling out. 1;[address], plan of care continues with psych consult ordered.
[2024-03-26 07:57] VITALS: BP 176/117
[2024-03-26] MEDS: COREG 25 MG PO ×2 (08:15→20:17)
[2024-03-26] MEDS: DIOVAN 80 MG PO (08:15)
[2024-03-26] MEDS: GLUCOPHAGE 500 MG PO (08:15)
[2024-03-26] MEDS: VITAMIN B-12 1000 MCG PO (08:15)
[2024-03-26] MEDS: HEPARIN 5000 UNITS SC ×2 (08:17→20:17)
[2024-03-26 08:19] LABS: Glucose - Point of Care 94 mg/dl (70-99)
--- NOTE | 2024-03-26 09:49 | CS.PSYCHR ---
Consult Summary - Psychiatry
-
Psychiatry consult for worsening dementia over past year and now hallucinations over the past few days. 74 yo female admitted on 03/23/2024 for this reason. on exam she states that she will answer my questions for 2 minutes only. She denies mental
health history. She denies hallucinations and is correct in answering that there are 3 people currently in the room. She is oriented to [facility] and [facility]. She cheats the date off the white board in her room. She knows its fall and
thanksgiving just passed. She says a 'dumbo' is going into presidential office but then says Eduardo is president. She then aborts the interview and says if the weather is nice tomorrow she would consider taking a walk with me and answer more
questions.
Seen by neurology-
'Abrupt onset cognitive decline on chronic cognitive decline
Most likely multifactorial including mild metabolic issues which involve hypothyroidism, inadequate iron replacement, small vessel ischemic disease
Past psych- denies
PMH- chronic back pain, HTN, HLD, hypothyroidism, GERD, thalassemia minor
Social hx- , two kids; was living alone per chart
D&A- patient cut interview short. unable to ask
Family hx- patient cut interview short, unable to ask
A/P- 74 yo female with worsening cognitive decline. continue current medical treatment. no evidence of psychosis or aggressive behaviors at this time. Would avoid antipsychotic use unless necessary due to safety of patient or those around her.
Patient could benefit from seeing an outpatient geriatric psychiatrist for help with behavior management if needed as an outpatient.
--- NOTE | 2024-03-26 13:22 | W.PN.HOSP.TC ---
Today's Communication/Plan
-
await psych consult
recheck labs
Assessment / Plan
Assessment / Plan
Progressive decrease cognitive fxn past year, became suddenly more severe past 48 hrs
unclear if pt has been taking her medications. Concern for NPH. CT scan: There is no evidence of intracranial mass lesion or mass effect with no midline shift.
There is no evidence for acute intracranial hemorrhage.
Mild to moderate diffuse atrophy. Moderate ventricular dilation appears slightly greater in the degree of atrophy. The callosal angle appears normal, the finding which is considered evidence against normal pressure hydrocephalus but does not exclude
normal pressure hydrocephalus. Please correlate clinically.
Hypothyroidism
TSH 0.16/free T4 2.30
unclear if pt was taking correct dose prior to admission. Will continue current dose and recheck level in future
Hx of essential HTN
probably not taking medication. BP 127/54-152/77. Will start Diovan 80 mg, BP 161/77
Thalassemia Minor
will follow
NIDDM by hx
a1c 6.2%.
diarrhea
Norovirus test was negative. Will follow for now. ?Metformin related, will stop
Prerenal azotemia
BUN/Creat 46/1.5-->39/1.3
improvement in dehydration (probably with stopping HCTZ) may be related to her slightly improved mentation
P:neuro consult appreciated
will hold most of medications and resume cautiously
will consult Psych for recommendation on anti-Psychotic Rx
discussed with Latasha paez. They plan to have pt admitted to [facility]. Will need forms completed by me, told to bring them by for me to complete. Physical Therapy Aides Teacher from [facility] will be here tomorrow to evaluate
vit B-12 is 366, will give 1 shot of supplement
Pt is a DNR
Reviewed with CM
Anticipated Discharge: 24 - 48 hours
Subjective/Interval History
-
Date of Service: March 26, 2024
Mental status/agitation has been very variable, she was good when I was in room with her
Objective Data
-
Vital Signs:
Vital Signs
Temp Pulse Resp BP Pulse Ox
97.9 F 81 18 176/117 100
03/26/24 07:57 03/26/24 07:57 03/26/24 07:57 03/26/24 07:57 03/26/24 07:57
I&O
03/25/24 03/26/24 03/27/24
06:59 06:59 06:59
Intake Total 240 / 240 300 / 300 240 / 240
Balance 240 / 240 300 / 300 240 / 240
Review of Systems
-
History Source: Family (jeannine, Latasha)
Constitutional: Denies Fever
EENT: Reports No Symptoms Reported
Respiratory: Reports No Symptoms
Cardiac: Reports No Symptoms
Abdomen/GI: Reports No Symptoms
Physical Exam
-
General: Well Developed, Well Nourished and No Apparent Distress
HEENT: Normocephalic, Atraumatic and Moist Mucous Membranes
Respiratory: Clear to Auscultation; Negative Wheezes, Rales or Rhonchi
Cardiac: Regular Rhythm and S1/S2
GI: Soft, Nontender and Nondistended
Musculoskeletal: No Clubbing, No Cyanosis and No Edema
Psych: Calm
--- NOTE | 2024-03-26 14:10 | CM ---
Addendum entered by Mary Dorantes 03/26/24 16:33:
Per patient's daughter, application for LTC is in progress; patient will discharge to [facility] @ [address], [place] [id number]

Original Note:
Plan: discharge to LTC facility when medically stable; pending bed availability
[2024-03-26] MEDS: CYANOCOBALAMIN 1000 MCG IM (14:31)
[2024-03-26 15:01] LABS: Vitamin B12 > 1000 pg/ml (239-931)
[2024-03-26 15:13] VITALS: BP 157/83
[2024-03-26 15:14] VITALS: BP 157/83; PULSE 76; O2SAT 98
[2024-03-26] MEDS: PROTONIX 40 MG PO (17:05)
[2024-03-26] MEDS: TYLENOL 650 MG PO (20:16)
[2024-03-26] MEDS: FEOSOL 325 MG PO (21:04)
[2024-03-26] MEDS: ZETIA 10 MG PO (21:04)
[2024-03-26] MEDS: MELATONIN 5 MG PO (21:04)
[2024-03-26] MEDS: CRESTOR 20 MG PO (21:04)
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
[2024-03-27] MEDS: SYNTHROID 88 MCG PO (05:02)
--- NOTE | 2024-03-27 06:19 | PTCARENOTE ---
Patient refused 2300pm vital signs.
[2024-03-27 08:36] VITALS: BP 180/84
[2024-03-27] MEDS: KLONOPIN 0.5 MG PO (08:40)
[2024-03-27] MEDS: DIOVAN 80 MG PO (08:40)
[2024-03-27] MEDS: HEPARIN SC ×4 (08:40→20:30)
[2024-03-27] MEDS: VITAMIN B-12 1000 MCG PO (08:40)
[2024-03-27] MEDS: COREG 25 MG PO ×2 (08:41→20:21)
[2024-03-27] MEDS: TYLENOL 650 MG PO ×3 (08:41→20:20)
[2024-03-27 09:16] LABS: % Basophils 0.9 % (0-2); % Eosinophils 1.5 % (0-6); % Immature Granulocytes 0.4 % (0-0.5); % Lymphocytes 35.5 % (20.5-51.1); % Monocytes 8.4 % (1.7-9.3); % Neutrophils 53.3 % (42.2-75.2); Absolute Basophils 0.1 10^3/uL (0-0.2); Absolute Eosinophils 0.1 10^3/uL (0-0.7); Absolute Lymphocytes 1.9 10^3/uL (1.2-3.4); Absolute Monocytes 0.5 10^3/uL (0.1-0.6); Absolute Neutrophils 2.9 10^3/uL (1.4-6.5); Hematocrit 29.6 % (37.0-47.0); Hemoglobin 9.2 g/dL (12.0-16.0); Mean Corp Hgb Conc. 31.1 g/dL (33.0-37.0); Mean Corpuscular Hgb 18.3 pg (27.0-31.0); Nucleated Red Blood Cells % 0 %; Platelet Count 206 10^3/uL (130-400); Red Blood Cell Count 5.02 10^6/uL (4.20-5.40); White Blood Cell Count 5.4 10^3/uL (4.8-10.8)
[2024-03-27 09:27] LABS: Blood Urea Nitrogen 24 mg/dl (7-17); Carbon Dioxide 21 mmol/L (22-30); Chloride 107 mmol/L (98-107); Estimated Creatinine Clearance 26 ml/min; Glucose 76 mg/dl (70-99); Potassium 3.5 mmol/L (3.5-5.1); Sodium 145 mmol/L (135-145)
--- NOTE | 2024-03-27 10:53 | W.PN.UPDATE ---
Update Note
Progress Note Update
patient seen chart reviewed. discussed w nursing. noted patient admitted with change in mental status. she has hx of hypothyroid (tsh is low and free t4 high...dr armenta repeating). she is anemic but c/w thalessemia. b12 folate are normal. she
also has hx of niddm htn. family has noted decline in cognition over the past year but when mrs casper came to [place] for holiday it seemed more pronounced. the patient had been living alone but family making arrangements for memory care. the
patient was taking klonopin at home and has a prn for it here including o.5 and o.25. nursing gave it to her this am and noted no improvement. she was quite agitated when i came in but responsive to friendly conversation. she started out wanting
to leave and ended up telling me what to order for her lunch despite having ripped up several menus earlier. she clearly is confused. have dc'ed the o.5 klonopin order and lengthened the time between prns of 0.25. she may do better with a prn of
risperdal o.25 mg but at this moment she is calm and would see how she does the rest of the day.
--- NOTE | 2024-03-27 15:10 | W.PN.HOSP.TC ---
Today's Communication/Plan
-
complete DME
To consider Risperdal as per Psych
Assessment / Plan
Assessment / Plan
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
unclear if pt has been taking her medications. Concern for NPH. CT scan: There is no evidence of intracranial mass lesion or mass effect with no midline shift.
There is no evidence for acute intracranial hemorrhage.
Mild to moderate diffuse atrophy. Moderate ventricular dilation appears slightly greater in the degree of atrophy. The callosal angle appears normal, the finding which is considered evidence against normal pressure hydrocephalus but does not exclude
normal pressure hydrocephalus. Please correlate clinically.
Hypothyroidism
TSH 0.16/free T4 2.30
unclear if pt was taking correct dose prior to admission. Will continue current dose and recheck level in future
Hx of essential HTN
probably not taking medication. BP 127/54-152/77. Will start Diovan 80 mg, BP 161/77
Thalassemia Minor
will follow
NIDDM by hx
a1c 6.2%.
diarrhea
Norovirus test was negative. ?Metformin related, with stopping the Metformin, diarrhea has stopped
Prerenal azotemia
BUN/Creat 46/1.5-->39/1.3-->24/1.5
improvement in dehydration (probably with stopping HCTZ) may be related to her slightly improved mentation
P:neuro consult appreciated
will hold most of medications and resume cautiously
Psych input for recommendation on anti-Psychotic Rx appreciated
discussed with Latasha paez. They plan to have pt admitted to [facility]. Will need forms completed by me, Documentation of Medical Evaluation completed to allow her to go to [facility] (took 20 minutes) Bias Cutting Machine Operator [employer] from [facility] here now to evaluate
vit B-12 is 366, gave 1 shot of supplement
Pt is a DNR
Reviewed with CM
Anticipated Discharge: 24 - 48 hours
Subjective/Interval History
-
Date of Service: March 27, 2024
Calm, interactive with dgt in room
Objective Data
-
Labs:
Laboratory Results
03/27/24
08:52
WBC 5.4
Hgb 9.2 L
Hct 29.6 L
Plt Count 206
Sodium 145
Potassium 3.5
Chloride 107
Carbon Dioxide 21 L
BUN 24 H
Creatinine 1.5 H
Glucose 76
Calcium 9.0
Vital Signs:
Vital Signs
Temp Pulse Resp BP Pulse Ox
97.5 F 61 17 180/84 96
03/27/24 08:36 03/27/24 08:40 03/27/24 08:36 03/27/24 08:40 03/27/24 08:36
I&O
03/26/24 03/27/24 03/28/24
06:59 06:59 06:59
Intake Total 300 / 300 240 / 240 240 / 240
Balance 300 / 300 240 / 240 240 / 240
Review of Systems
-
Unable to obtain full review of systems at this time due to: Dementia
History Source: Family (dgt, Latasha), Coordinated Provider and Other (operations representative from [facility])
Constitutional: Denies Fever
EENT: Reports No Symptoms Reported
Respiratory: Reports No Symptoms
Cardiac: Reports No Symptoms
Abdomen/GI: Reports No Symptoms
Physical Exam
-
General: Well Developed, Well Nourished and No Apparent Distress
HEENT: Normocephalic, Atraumatic and Moist Mucous Membranes
Respiratory: Clear to Auscultation; Negative Wheezes, Rales or Rhonchi
Cardiac: Regular Rhythm and S1/S2
GI: Soft, Nontender and Nondistended
Musculoskeletal: No Clubbing, No Cyanosis and No Edema
Psych: Calm
[2024-03-27 15:33] VITALS: BP 134/71
--- NOTE | 2024-03-27 16:00 | PTCARENOTE ---
Pt c/o middle back pain, made aware, new order provided, see MAR.
[2024-03-27] MEDS: PROTONIX 40 MG PO (17:25)
[2024-03-27] MEDS: LIDOCAINE 4% PATCH 1 PATCH TOPICAL (17:25)
[2024-03-27] MEDS: FEOSOL 325 MG PO (21:04)
[2024-03-27] MEDS: CRESTOR 20 MG PO (21:04)
[2024-03-27] MEDS: ZETIA 10 MG PO (21:04)
[2024-03-27] MEDS: MELATONIN 5 MG PO (21:04)
[2024-03-27 23:00] VITALS: BP 181/85
[2024-03-28 06:00] VITALS: BMI 21.6
[2024-03-28 07:30] VITALS: BP 166/75
[2024-03-28] MEDS: NAMENDA 10 MG PO (08:03)
[2024-03-28] MEDS: SYNTHROID 88 MCG PO (08:03)
[2024-03-28] MEDS: HEPARIN SC (08:03)
[2024-03-28] MEDS: VITAMIN B-12 1000 MCG PO (08:03)
[2024-03-28] MEDS: DIOVAN 80 MG PO (08:03)
[2024-03-28] MEDS: COREG 25 MG PO ×2 (08:03→21:09)
--- NOTE | 2024-03-28 10:06 | W.PN.HOSP.TC ---
Addendum entered and electronically signed by Neptali Bacon MD 03/28/24 17:30:
started Namenda today, not on medication list for [facility]
Original Note:
Today's Communication/Plan
-
continue current Tx, await transfer to [facility]
Assessment / Plan
Assessment / Plan
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
unclear if pt has been taking her medications. Concern for NPH. CT scan: There is no evidence of intracranial mass lesion or mass effect with no midline shift.
There is no evidence for acute intracranial hemorrhage.
Mild to moderate diffuse atrophy. Moderate ventricular dilation appears slightly greater in the degree of atrophy. The callosal angle appears normal, the finding which is considered evidence against normal pressure hydrocephalus but does not exclude
normal pressure hydrocephalus. Please correlate clinically.
Hypothyroidism
TSH 0.16/free T4 2.30
unclear if pt was taking correct dose prior to admission. Will continue current dose and recheck level in future
Hx of essential HTN
probably not taking medication. BP 127/54-152/77. Will start Diovan 80 mg, BP 161/77
Thalassemia Minor
will follow
NIDDM by hx
a1c 6.2%.
diarrhea
Norovirus test was negative. ?Metformin related, with stopping the Metformin, diarrhea has stopped
Prerenal azotemia
BUN/Creat 46/1.5-->39/1.3-->24/1.5
improvement in dehydration (probably with stopping HCTZ) may be related to her slightly improved mentation
P:neuro consult appreciated
will hold most of medications and resume cautiously
Psych input for recommendation on anti-Psychotic Rx appreciated
discussed with Latasha paez 03/28. They plan to have pt admitted to [facility]. Will need forms completed by me, Documentation of Medical Evaluation completed to allow her to go to [facility] (took 20 minutes) Yarn Texturing Machine Operator from [facility] here now to evaluate
vit B-12 is 366, gave 1 shot of supplement. As per Latasha, she was told by the [facility] that plan on admit on 03/30
Pt is a DNR
Reviewed with CM
Anticipated Discharge: 24 - 48 hours
Subjective/Interval History
-
Date of Service: March 28, 2024
Currently calm, but can be very variable
Objective Data
-
Vital Signs:
Vital Signs
Temp Pulse Resp BP Pulse Ox
97.7 F 66 17 166/75 99
03/28/24 07:30 03/28/24 08:03 03/28/24 07:30 03/28/24 08:03 03/28/24 07:30
I&O
03/27/24 03/28/24 03/29/24
06:59 06:59 06:59
Intake Total 240 / 240 480 / 480
Balance 240 / 240 480 / 480
Review of Systems
-
Unable to obtain full review of systems at this time due to: Dementia
History Source: Family (dgt, Latasha), Coordinated Provider and Other (bilingual sales representative from [facility])
Constitutional: Denies Fever
EENT: Reports No Symptoms Reported
Respiratory: Reports No Symptoms
Cardiac: Reports No Symptoms
Abdomen/GI: Reports No Symptoms
Physical Exam
-
General: Well Developed, Well Nourished and No Apparent Distress
HEENT: Normocephalic, Atraumatic and Moist Mucous Membranes
Respiratory: Clear to Auscultation; Negative Wheezes, Rales or Rhonchi
Cardiac: Regular Rhythm and S1/S2
GI: Soft, Nontender and Nondistended
Musculoskeletal: No Clubbing, No Cyanosis and No Edema
Psych: Calm
--- NOTE | 2024-03-28 12:12 | W.PN.UPDATE ---
Update Note
Progress Note Update
patient seen chart reviewed. discussed with nursing. spoke at length with daughter. patient has been accepted at [facility] memory care unit for friday of next week. i did discuss with d that patient does have periods where she gets somewhat
agitated generally in the evening hours. d feels that a lot of this has to do with patient who is normally very mobile being constrained by the hospital routine. we did discuss use of prns other than klonopin but d fears this could jeopardize dc to
sunrise and that perhaps her mother does not need such chemical restraint . for now will continue only w prn klonopin . i did explain to d that sometimes klonopin can have a disinhibiting effect in patients w dementia. at any rate patient was
very pleasant this am although clearly remains confused. noted namenda dose is ten. asked d when it was started. she was not aware mother was on it. informed her that this could at some point be increased up to 20 mg but it is certainly not
something that needs to be done today.
[2024-03-28 15:06] VITALS: BP 141/77
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
[2024-03-28] MEDS: PROTONIX 40 MG PO (17:55)
[2024-03-28] MEDS: TYLENOL 650 MG PO (17:55)
[2024-03-28] MEDS: ZETIA 10 MG PO (21:09)
[2024-03-28] MEDS: HEPARIN 5000 UNITS SC (21:11)
[2024-03-28] MEDS: LIDOCAINE 4% PATCH 1 PATCH TOPICAL (21:12)
[2024-03-28] MEDS: CRESTOR 20 MG PO (21:12)
[2024-03-28] MEDS: FEOSOL 325 MG PO (21:12)
[2024-03-28] MEDS: MELATONIN 5 MG PO (21:12)
[2024-03-28 23:35] VITALS: BP 179/83
[2024-03-29] MEDS: TYLENOL 650 MG PO (00:09)
[2024-03-29] MEDS: KLONOPIN 0.25 MG PO ×2 (01:49→21:34)
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
[2024-03-29] MEDS: SYNTHROID 88 MCG PO (05:59)
[2024-03-29 06:00] VITALS: BMI 21.6
[2024-03-29 08:01] VITALS: BP 153/76
[2024-03-29] MEDS: DIOVAN 80 MG PO ×2 (08:29→15:48)
[2024-03-29] MEDS: COREG 25 MG PO ×2 (08:29→21:34)
[2024-03-29] MEDS: NAMENDA 10 MG PO (08:29)
[2024-03-29] MEDS: VITAMIN B-12 1000 MCG PO (08:29)
[2024-03-29] MEDS: HEPARIN SC (08:33)
--- NOTE | 2024-03-29 08:41 | W.PN.HOSP.TC ---
Today's Communication/Plan
-
Discharge tomorrow
Assessment / Plan
Assessment / Plan
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
unclear if pt has been taking her medications. Concern for NPH. Appreciate neurology and psychiatry input, likely new onset dementia. Plan for discharge to [facility] 03/30
CT scan: There is no evidence of intracranial mass lesion or mass effect with no midline shift.
There is no evidence for acute intracranial hemorrhage.
Mild to moderate diffuse atrophy. Moderate ventricular dilation appears slightly greater in the degree of atrophy. The callosal angle appears normal, the finding which is considered evidence against normal pressure hydrocephalus but does not exclude
normal pressure hydrocephalus. Please correlate clinically.
Hypothyroidism
TSH 0.16/free T4 2.30
unclear if pt was taking correct dose prior to admission. Will continue current dose and recheck in 4-6 weeks outpt
Labile hypertension
probably not taking medication. BP continues to be elevated, increase Diovan to 160 mg daily 03/29
Thalassemia Minor
will follow
NIDDM by hx
a1c 6.2%.
Diarrhea
Norovirus test was negative. ?Metformin related, with stopping the Metformin, diarrhea has stopped
Probable chronic kidney disease, stage III�4
BUN/Creat 46/1.5-->39/1.3-->24/1.5
improvement in dehydration (probably with stopping HCTZ) may be related to her slightly improved mentation
DVT prophylaxis�SQ Heparin
DNR
Updated daughter on phone 03/30
Total time spent to see the patient on the floor, examine the patient, review data and lab results, discuss treatment plan with patient, nursing staff around 38 minutes.
Physical Exam
General: No acute distress
HEENT: Normocephalic, Atraumatic, EOMI, MMM
Respiratory: Clear to Auscultation bilaterally
Cardiac: Normal S1/S2, Regular Rate and Rhythm
GI: Soft, Nontender, Nondistended, Normal Bowel Sounds
Extremities: No Clubbing, Cyanosis, or Edema
Neuro: Pleasantly confused
Anticipated Discharge: Within 24 hours
Subjective/Interval History
-
Date of Service: March 29, 2024
No chest pain, no shortness of breath. No fever, no vomiting.
Objective Data
-
Vital Signs:
Vital Signs
Temp Pulse Resp BP Pulse Ox
97.6 F 68 18 179/83 99
03/28/24 23:35 03/28/24 23:35 03/28/24 23:35 03/28/24 23:35 03/28/24 23:35
I&O
03/28/24 03/29/24 03/30/24
06:59 06:59 06:59
Intake Total 480 / 480 600 / 720 120 / 120
Balance 480 / 480 600 / 720 120 / 120
[2024-03-29 08:56] VITALS: BMI 21.6
--- NOTE | 2024-03-29 13:13 | CM ---
Addendum entered by Enrico Alegre 03/29/24 13:53:
Spoke w/ Dr. Quiñones regarding pt possibly d/c tomorrow to [facility]. Dr. Quiñones agreeable to d/c tomorrow
Informed that pt's daughter would like a phone call, per Dr. Quiñones will add to call list and speak w/ daughter later today.
[facility]
Report: [phone] or [phone]
Plan: [facility]
Original Note:
Spoke with daughter Latasha, received verbal permission to give clinicals to Andrew from [facility].
Andrew here to roller picker signed DME form and clinicals.
Per daughter Latasha, she will transport to [facility] tomorrow afternoon.
Per Keren Morales to receive report.
Daughter would like to speak with Dr Quiñones.
[2024-03-29 15:00] VITALS: BP 162/77
[2024-03-29 16:51] VITALS: BP 154/77; PULSE 75; O2SAT 100
[2024-03-29] MEDS: PROTONIX 40 MG PO (17:10)
[2024-03-29] MEDS: MELATONIN 5 MG PO (21:33)
[2024-03-29] MEDS: LIDOCAINE 4% PATCH 1 PATCH TOPICAL (21:33)
[2024-03-29] MEDS: HEPARIN 5000 UNITS SC (21:33)
[2024-03-29] MEDS: CRESTOR 20 MG PO (21:34)
[2024-03-29] MEDS: FEOSOL 325 MG PO (21:34)
[2024-03-29] MEDS: ZETIA 10 MG PO (21:34)
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
[2024-03-30] MEDS: SYNTHROID PO ×2 (06:46→06:47)
[2024-03-30 07:50] VITALS: BP 160/96
--- NOTE | 2024-03-30 08:50 | W.PN.HOSP.TC ---
Today's Communication/Plan
-
Discharge to [facility] memory care unit today
Assessment / Plan
Assessment / Plan
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
unclear if pt has been taking her medications. Concern for NPH. Appreciate neurology and psychiatry input, likely new onset dementia. Plan for discharge to [facility] 03/[address] scan: There is no evidence of intracranial mass lesion or mass effect with no midline shift.
There is no evidence for acute intracranial hemorrhage.
Mild to moderate diffuse atrophy. Moderate ventricular dilation appears slightly greater in the degree of atrophy. The callosal angle appears normal, the finding which is considered evidence against normal pressure hydrocephalus but does not exclude
normal pressure hydrocephalus. Please correlate clinically.
Hypothyroidism
TSH 0.16/free T4 2.30
unclear if pt was taking correct dose prior to admission. Will continue current dose and recheck in 4-6 weeks outpt
Labile hypertension
probably not taking medication. BP improved with increasing Diovan to 160 mg daily 03/29
Thalassemia Minor
will follow
NIDDM by hx
a1c 6.2%.
Diarrhea
Norovirus test was negative. ?Metformin related, with stopping the Metformin, diarrhea has stopped
Probable chronic kidney disease, stage III�4
BUN/Creat 46/1.5-->39/1.3-->24/1.5
improvement in dehydration (probably with stopping HCTZ) may be related to her slightly improved mentation
DVT prophylaxis�SQ Heparin
DNR
Updated daughter on phone 03/30
Physical Exam
General: No acute distress
HEENT: Normocephalic, Atraumatic, EOMI, MMM
Respiratory: Clear to Auscultation bilaterally
Cardiac: Normal S1/S2, Regular Rate and Rhythm
GI: Soft, Nontender, Nondistended, Normal Bowel Sounds
Extremities: No Clubbing, Cyanosis, or Edema
Neuro: Pleasantly confused
Anticipated Discharge: Today
Subjective/Interval History
-
Date of Service: March 30, 2024
No acute events. No fever, no vomiting.
Objective Data
-
Vital Signs:
Vital Signs
Temp Pulse Resp BP Pulse Ox
98 F 72 18 160/96 96
03/30/24 07:50 03/30/24 07:50 03/30/24 07:50 03/30/24 07:50 03/30/24 07:50
I&O
03/29/24 03/30/24 03/31/24
06:59 06:59 06:59
Intake Total 600 / 720 750 / 750
Balance 600 / 720 750 / 750
[2024-03-30] MEDS: DIOVAN 160 MG PO (08:53)
[2024-03-30] MEDS: NAMENDA 10 MG PO (08:54)
[2024-03-30] MEDS: VITAMIN B-12 1000 MCG PO (08:54)
[2024-03-30] MEDS: COREG 25 MG PO (08:54)
[2024-03-30] MEDS: HEPARIN SC ×2 (08:55→10:13)
--- NOTE | 2024-03-30 09:37 | W.DCSUMMARY ---
Discharge Summary
Discharge Data
Date of Admission: 03/22/24
Date of Discharge: 03/30/24
-
Pending Results: No
Hospital Course
Discharge diagnosis:
Progressive cognitive decline suspicious for dementia
Hypothyroidism
Labile hypertension
Thalassemia minor
Diabetes
Diarrhea
Probable stage III�4 chronic kidney disease
Consults: Neurology, psychiatry
Hospital course:
74-year-old female with a past medical history of hypothyroidism, hypertension, thalassemia, and diabetes was admitted for progressive cognitive decline for the last year. Patient lives alone, and her family noticed worsening cognitive decline a
few days prior to admission. Patient was seen in conjunction with neurology and psychiatry. Neurologic workup was negative. Neurology and psychiatry suspects probable dementia. She was started on Namenda.
Patient had uncontrolled hypertension. Her blood pressure improved with increasing her valsartan from 80 mg daily to 160 mg daily.
Patient also had diarrhea, which resolved. She was negative for norovirus.
Patient has hypothyroidism. Her TSH was low, free T4 mildly elevated at 2.30. It is unclear if she was taking her medications. She was continued on her previous dose of levothyroxine 88 mcg daily. Recommend repeat thyroid function tests in 4-6
weeks.
Patient has been set up to be discharged to [facility]. She is medically stable for discharge. She needs to follow-up with her primary care doctor in 1 week.
Disposition: [facility] unit
Discharge planning: Required 40 minutes
Discharge Plan
-
Patient Disposition: Home with Home Care
Discharge Diagnosis/Procedures: Progressive memory decline suggestive of dementia, uncontrolled hypertension
Condition: Fair
Diet: Regular
Activity: As tolerated
Activity Restrictions/Additional Instructions:
Recommend repeat thyroid function test in 4-6 weeks.
Please follow-up with your primary care provider in 1 week.
Referrals:
NONE,* [Family Provider] -
Prescriptions:
New
valsartan 160 mg tablet
160 mg PO DAILY Qty: 30 0RF
melatonin 5 mg Tablet
5 mg PO HS Qty: 30 0RF
lidocaine 4 % Adhesive Patch,Medicated
1 patch topical DAILY@2000 Qty: 30 0RF
cyanocobalamin (vitamin B-12) 1,000 mcg Tablet
1,000 mcg PO DAILY Qty: 30 0RF
memantine 10 mg Tablet
10 mg PO DAILY Qty: 30 0RF
acetaminophen 325 mg Tablet
650 mg PO Q4HPRN PRN (Reason: mild pain/ fever>100.5F) Qty: 0 0RF
ferrous sulfate [FeroSul] 325 mg (65 mg iron) Tablet
325 mg PO DAILY@1400 Qty: 30 0RF
ascorbic acid (vitamin C) [Vitamin C] 500 mg tablet
0.5 g PO DAILY@1400 Qty: 30 0RF
clonazepam 0.5 mg Tablet
0.25 mg PO Q6HPRN PRN (Reason: AGITATION) Qty: 30 0RF
Continued
metformin 500 mg Tablet
500 mg PO QPM
carvedilol 25 mg Tablet
25 mg PO BID
levothyroxine 88 mcg Tablet
88 mcg PO DAILY
esomeprazole magnesium [Nexium 24HR] 20 mg Capsule,Delayed Release(Dr/Ec)
20 mg PO QPM
ezetimibe 10 mg Tablet
10 mg PO HS
rosuvastatin 20 mg Tablet
20 mg PO HS
dexlansoprazole 60 mg Capsule,Biphase Delayed Releas
60 mg PO DAILY
Discontinued
clonazepam 0.5 mg Tablet
0.5 mg PO DAILYPRN PRN (Reason: anxiety)
famotidine [Pepcid] 20 mg Tablet
20 mg PO DAILY
telmisartan 80 mg Tablet
80 mg PO NOON
hydrochlorothiazide 12.5 mg Capsule
12.5 mg PO NOON
morphine 15 mg Tablet Extended Release
15 mg PO Q12H
pregabalin 75 mg Capsule
75 mg PO TID
Discharge Orders:
Discharge Patient (As Directed); Ordered 03/30/24
Ordered By: Tien Quiñones
Discharge Date and Time
Discharge Date/Time: 03/30/24 13:37
Print Language: AFGHAN
--- NOTE | 2024-03-30 09:54 | CM ---
CM spoke with Christie's daughter, Latasha Petersen, to discuss discharge to [facility]. Latasha will come to pick her up and provide transport to [facility] at 1pm today.
IMM reviewed verbally with Latasha and a copy was left at pt's bedside for daughter to rock picker at discharge.
Plan: Discharge to [facility] via family transport.
--- NOTE | 2024-03-30 10:32 | W.PN.UPDATE ---
Update Note
Progress Note Update
Patient seen, chart reviewed, discussed with staff. Ms. Hylton is awake, alert, oriented with intermittent confusion.Pleasant and cooperative. No acute events overnight. No complaints to report this AM. Plan for DC to memory care today. She tells me
she had a great experience in the hospital and everyone has been very nice. Denies any depressive or anxiety symptoms. Reports sleep and appetite stable.
Impression/Recommendation: Worsening cognitive decline without psychosis or aggressive behaviors - continue with PRN Klonopin at 0.25mg q6hrs, plan to DC to memory care today.
[2024-03-30 13:19] VITALS: BP 122/75
== END 2024-03-30 13:37 | disposition home health service (06) | DRG 885 ==
LOC: 3 WEST ACU 19:19
PROVIDERS: Registered Nurse; ADMITTING PHYSICIAN Internal Medicine; ATTENDING PHYSICIAN Family Medicine; CONSULT PHYSICIAN Psychiatry & Neurology Neurology; CONSULT PHYSICIAN Psychiatry & Neurology Psychiatry; EMERGENCY PHYSICIAN Emergency Medicine
DX: F29 Unspecified psychosis not due to a substance or known physiological condition (principal); F17.210 Nicotine dependence, cigarettes, uncomplicated; E03.9 Hypothyroidism, unspecified; I10 Essential (primary) hypertension; D56.3 Thalassemia minor; Z79.84 Long term (current) use of oral hypoglycemic drugs; E11.9 Type 2 diabetes mellitus without complications; N18.30 Chronic kidney disease, stage 3 unspecified
CPT/HCPCS: 70450; 71046; 80048; 80053; 81003; 81015; 82607; 82728; 82746; 82962; 83036; 84439; 84443; 85025; 85652; 87798; 96360; 97162; 97166; 97530; 99285; J2916